=== PATIENT | female | born 1960 | race Caucasian/White ===

== ENCOUNTER 2021-09-29 09:17 | Emergency (ER) | payer OTHER ==
[2021-09-29 09:42] VITALS: BP 133/62; PULSE 73; TEMP 97.8; BMI 26.2
[2021-09-29] MEDS ORDERED: KETOROLAC TROMETHAMINE 15 MG/ML VIAL IM ONE (10:51)
[2021-09-29] MEDS ORDERED: ACETAMINOPHEN 325 MG TABLET (FP) PO ONE (10:51)
[2021-09-29] MEDS ORDERED: ACETAMINOPHEN 325 MG TABLET (FP) ONE (11:28)
[2021-09-29] MEDS ORDERED: CYCLOBENZAPRINE HCL 10 MG TABLET (FP) ONE (11:28)
[2021-09-29] MEDS ORDERED: KETOROLAC TROMETHAMINE 30 MG/1 ML VIAL ONE (11:29)
[2021-09-30] MEDS ORDERED: CYCLOBENZAPRINE HCL 5 MG TABLET PO ONE (10:52)
== END 2021-09-29 12:51 | disposition home or self-care (01) ==
LOC: JER 09:17
PROC: 3E023GC Introduction of Other Therapeutic Substance into Muscle, Percutaneous Approach (ICD-10-PCS; principal; 2021-09-29)
DX: M54.89 Other dorsalgia (principal); R91.1 Solitary pulmonary nodule
CPT/HCPCS: 71250-TC; 72125-TC; 72128-TC; 72131-TC; 99284-25

== ENCOUNTER 2022-02-22 07:49 | Inpatient (IN) | payer OTHER ==
[2022-02-22] MEDS ORDERED: SODIUM CHLORIDE 0.9% 500 ML INFUS.BAG IV ONE (09:02)
[2022-02-22] MEDS ORDERED: ACETAMINOPHEN 1000 MG/100 ML BAG IVPB ONE ×2 (09:02→22:50)
[2022-02-22] MEDS ORDERED: PANTOPRAZOLE SODIUM 40 MG VIAL IVPUSH ONE (09:04)
[2022-02-22] MEDS ORDERED: PANTOPRAZOLE SODIUM 40 MG VIAL ONE (09:47)
[2022-02-22] MEDS ORDERED: ACETAMINOPHEN INJECTION 100 ML IVPB ONE ×2 (09:47→09:48)
[2022-02-22 10:17] LABS: BASO % 0.3 % (0-2.0); EOS % 0.4 % (0-4.5); HEMATOCRIT 43.8 % (32.4-45.2); HEMOGLOBIN 14.8 GM/dL (10.7-15.3); MCH 30.8 pg (25.7-33.7); MCHC 33.7 g/dl (32.0-36.0); MEAN CELL VOLUME 91.4 fl (80-96); MEAN PLT VOLUME 6.5 fl (7.5-11.1); MONO % 4.4 % (3.8-10.2); NEUT % 77.9 % (42.8-82.8); PLATELET COUNT 282 10^3/uL (134-434); RBC 4.79 M/mm3 (3.60-5.2); RDW 13.5 % (11.6-15.6); WHITE BLOOD COUNT 9.7 K/mm3 (4.0-10.0)
[2022-02-22 10:18] LABS: URINE APPEARANCE CLEAR; URINE BILIRUBIN NEGATIVE (NEGATIVE); URINE COLOR YELLOW; URINE GLUCOSE (UA) NEGATIVE (NEGATIVE); URINE KETONE NEGATIVE (NEGATIVE); URINE LEUK ESTERASE NEGATIVE (NEGATIVE); URINE NITRITE NEGATIVE (NEGATIVE); URINE PROTEIN NEGATIVE (NEGATIVE); URINE UROBILINOGEN 0.2 mg/dL (0.2-1.0)
[2022-02-22 10:24] LABS: PROTHROMBIN TIME (PATIENT) 11.5 SEC (9.7-13.0)
[2022-02-22 10:35] LABS: CALCIUM 9.5 mg/dL (8.5-10.1)
[2022-02-22 10:36] LABS: ALBUMIN 3.9 g/dl (3.4-5.0); BLOOD UREA NITROGEN 12.4 mg/dL (7-18); MAGNESIUM 2.2 mg/dL (1.8-2.4)
[2022-02-22 10:38] LABS: CREATININE 0.6 mg/dL (0.55-1.3)
[2022-02-22 10:39] LABS: PHOSPHOROUS 3.3 mg/dL (2.5-4.9)
[2022-02-22 10:40] LABS: BILIRUBIN,TOTAL 0.7 mg/dL (0.2-1); TOT PROT 6.8 g/dl (6.4-8.2)
[2022-02-22] MEDS ORDERED: CEFTRIAXONE 1 GM in DEXTROSE 5%-WATER - 50 ML IVPB SCH (16:30)
[2022-02-22] MEDS: SODIUM CHLORIDE 1,000 ML IV SCH (17:40)
[2022-02-22] MEDS ORDERED: FAMOTIDINE 20 MG/50 ML IVPB 20 MG/50 ML MG IVPB ONE (22:50)
[2022-02-23 01:48] VITALS: BMI 27.8
[2022-02-23] MEDS: PANTOPRAZOLE SODIUM 40 MG VIAL IVPUSH SCH ×2 (06:10→21:28)
[2022-02-23 07:57] LABS: BASO % 0.6 % (0-2.0); EOS % 2.1 % (0-4.5); HEMATOCRIT 38.5 % (32.4-45.2); HEMOGLOBIN 13.1 GM/dL (10.7-15.3); LYMPH % 39.2 % (8-40); MCH 30.9 pg (25.7-33.7); MCHC 34.1 g/dl (32.0-36.0); MEAN CELL VOLUME 90.8 fl (80-96); MEAN PLT VOLUME 6.4 fl (7.5-11.1); MONO % 8.4 % (3.8-10.2); NEUT % 49.7 % (42.8-82.8); PLATELET COUNT 279 10^3/uL (134-434); RBC 4.24 M/mm3 (3.60-5.2); RDW 13.2 % (11.6-15.6)
[2022-02-23 08:36] LABS: CALCIUM 8.4 mg/dL (8.5-10.1)
[2022-02-23 08:37] LABS: ALBUMIN 3.3 g/dl (3.4-5.0); BLOOD UREA NITROGEN 7.7 mg/dL (7-18); MAGNESIUM 2.2 mg/dL (1.8-2.4)
[2022-02-23 08:40] LABS: CREATININE 0.5 mg/dL (0.55-1.3); PHOSPHOROUS 3.2 mg/dL (2.5-4.9)
[2022-02-23 08:41] LABS: TOT PROT 5.6 g/dl (6.4-8.2)
[2022-02-23] MEDS ORDERED: cefTRIAXone SODIUM 1 GM VIAL ONE (09:33)
[2022-02-23] MEDS ORDERED: DEXTROSE 5%-WATER - 50 ML IVPB ONE (09:33)
[2022-02-23] MEDS: CEFTRIAXONE 1 GM in DEXTROSE 5%-WATER - 50 ML IVPB SCH (09:35)
[2022-02-23] MEDS: SODIUM CHLORIDE 1,000 ML IV SCH ×3 (12:11→17:17)
[2022-02-24] MEDS ORDERED: ACETAMINOPHEN 1000 MG/100 ML BAG IVPB ONE (01:37)
[2022-02-24 07:36] LABS: BASO % 0.6 % (0-2.0); EOS % 1.5 % (0-4.5); HEMATOCRIT 38.1 % (32.4-45.2); HEMOGLOBIN 12.6 GM/dL (10.7-15.3); LYMPH % 30.6 % (8-40); MCH 30.3 pg (25.7-33.7); MEAN CELL VOLUME 91.8 fl (80-96); MEAN PLT VOLUME 6.8 fl (7.5-11.1); MONO % 7.6 % (3.8-10.2); NEUT % 59.7 % (42.8-82.8); PLATELET COUNT 271 10^3/uL (134-434); RBC 4.15 M/mm3 (3.60-5.2); RDW 13.3 % (11.6-15.6); WHITE BLOOD COUNT 6.9 K/mm3 (4.0-10.0)
[2022-02-24 07:48] LABS: CHLORIDE 108 mmol/L (98-107); SODIUM 141 mmol/L (136-145)
[2022-02-24 07:50] LABS: CALCIUM 8.6 mg/dL (8.5-10.1)
[2022-02-24 07:51] LABS: ALBUMIN 3.2 g/dl (3.4-5.0); ANION GAP 8 MMOL/L (8-16); BLOOD UREA NITROGEN 8.1 mg/dL (7-18); CO2 24 mmol/L (21-32); GLUCOSE,RANDOM 106 mg/dL (74-106); MAGNESIUM 2.2 mg/dL (1.8-2.4)
[2022-02-24 07:54] LABS: CREATININE 0.6 mg/dL (0.55-1.3); PHOSPHOROUS 2.7 mg/dL (2.5-4.9); SGOT/AST 10 U/L (15-37); SGPT/ALT 16 U/L (13-61)
[2022-02-24 07:56] LABS: TOT PROT 5.6 g/dl (6.4-8.2)
[2022-02-24 07:57] LABS: ALK PHOS 53 U/L (45-117)
[2022-02-24 07:59] LABS: BILIRUBIN,TOTAL 0.9 mg/dL (0.2-1)
[2022-02-24] MEDS: SODIUM CHLORIDE 1,000 ML IV SCH (09:03)
[2022-02-24] MEDS ORDERED: cefTRIAXone SODIUM 1 GM VIAL ONE (09:59)
[2022-02-24] MEDS ORDERED: DEXTROSE 5%-WATER - 50 ML IVPB ONE (09:59)
[2022-02-24] MEDS ORDERED: PANTOPRAZOLE 40 MG TABLET PO SCH (10:00)
[2022-02-24] MEDS: CEFTRIAXONE 1 GM in DEXTROSE 5%-WATER - 50 ML IVPB SCH (10:19)
[2022-02-24 14:03] VITALS: BP 107/64; PULSE 56; TEMP 98.3
== END 2022-02-24 19:04 | disposition home or self-care (01) | DRG 249 ==
LOC: JER 07:49 → JERBED 13:22 → J6S 22:38
PROVIDERS: ADMIT Internal Medicine; ATTEND Internal Medicine
DX: K52.9 Noninfective gastroenteritis and colitis, unspecified (principal); K21.9 Gastro-esophageal reflux disease without esophagitis; J45.909 Unspecified asthma, uncomplicated; R91.1 Solitary pulmonary nodule; Z87.11 Personal history of peptic ulcer disease; Z85.42 Personal history of malignant neoplasm of other parts of uterus
CPT/HCPCS: 36415; 71045-TC-FY; 74177-TC; 80053; 81003; 82272; 83605; 83690; 83735; 84100; 84443; 85025; 85302; 85303; 85610; 85730; 86140; 86850; 86900; 86901; 87040; 87086; 93005; 93010; 99285-25; C9803-CS; Q9967; U0003; U0005

== ENCOUNTER 2022-04-07 14:55 | Emergency (ER) | payer OTHER ==
[2022-04-07 15:44] VITALS: BP 105/68; PULSE 67; TEMP 98.3; BMI 27.4
[2022-04-07] MEDS ORDERED: ACETAMINOPHEN 500 MG TABLET (FP) PO ONE (17:35)
[2022-04-07] MEDS ORDERED: PHENAZOPYRIDINE HCL 100 MG TABLET (FP) PO ONE (17:35)
[2022-04-07] MEDS ORDERED: PHENAZOPYRIDINE HCL 100 MG TABLET (FP) ONE (17:42)
[2022-04-07] MEDS ORDERED: ACETAMINOPHEN 500 MG TABLET (FP) ONE (17:42)
[2022-04-07 18:03] LABS: EPI CELLS 12 /uL (0-25.1); HYALINE CASTS 0 /uL (0-3.1); PH,URINE 6.5 (5.0-8.0); URINE APPEARANCE CLEAR; URINE BACTERIA 73 /uL (0-1359); URINE BILIRUBIN NEGATIVE (NEGATIVE); URINE COLOR YELLOW; URINE GLUCOSE (UA) NEGATIVE (NEGATIVE); URINE KETONE NEGATIVE (NEGATIVE); URINE LEUK ESTERASE 2+ (NEGATIVE); URINE NITRITE NEGATIVE (NEGATIVE); URINE PROTEIN NEGATIVE (NEGATIVE); URINE RBC 7 /uL (0-23.9); URINE UROBILINOGEN 0.2 mg/dL (0.2-1.0); URINE WBC 223 /uL (0-25.8)
== END 2022-04-07 18:40 | disposition home or self-care (01) ==
LOC: JERFT 14:55
DX: N30.01 Acute cystitis with hematuria (principal)
CPT/HCPCS: 81003; 87086; 87186; 99283-25

== ENCOUNTER 2022-07-13 04:14 | Day surgery (SDC) | payer OTHER ==
[2022-07-10 10:55] VITALS: BMI 28.1
[2022-07-13 12:56] VITALS: BP 109/53; PULSE 57; RESP 16; TEMP 97.3
== END 2022-07-13 13:00 | disposition home or self-care (01) ==
LOC: JASU-ENDO 04:14
PROVIDERS: ATTEND Internal Medicine Gastroenterology
PROC: 0DBN8ZX Excision of Sigmoid Colon, Via Natural or Artificial Opening Endoscopic, Diagnostic (ICD-10-PCS; 2022-07-13)
PROC: 0DBM8ZX Excision of Descending Colon, Via Natural or Artificial Opening Endoscopic, Diagnostic (ICD-10-PCS; principal; 2022-07-13 10:30)
DX: D12.4 Benign neoplasm of descending colon (principal); D12.5 Benign neoplasm of sigmoid colon; K63.89 Other specified diseases of intestine; K64.8 Other hemorrhoids
CPT/HCPCS: 88305-TC

== ENCOUNTER 2022-10-22 20:33 | Emergency (ER) | payer OTHER ==
[2022-10-22 20:39] VITALS: BP 115/70; PULSE 63; RESP 17; TEMP 98.1; BMI 27.4
[2022-10-22] MEDS ORDERED: SODIUM CHLORIDE 0.9% 500 ML INFUS.BAG IV ONE (22:53)
[2022-10-22] MEDS ORDERED: morphine CARPU-JECT 2 MG/1 ML DISP.SYRIN IVPUSH ONE (23:37)
[2022-10-22 23:50] LABS: BASO % 0.6 % (0-2.0); EOS % 3.6 % (0-4.5); HEMATOCRIT 41.9 % (32.4-45.2); HEMOGLOBIN 13.9 GM/dL (10.7-15.3); LYMPH % 40.2 % (8-40); MCHC 33.2 g/dl (32.0-36.0); MEAN CELL VOLUME 90.4 fl (80-96); MEAN PLT VOLUME 6.5 fl (7.5-11.1); MONO % 7.3 % (3.8-10.2); NEUT % 48.3 % (42.8-82.8); PLATELET COUNT 279 10^3/uL (134-434); RBC 4.64 M/mm3 (3.60-5.2); RDW 13.7 % (11.6-15.6); WHITE BLOOD COUNT 6.8 K/mm3 (4.0-10.0)
[2022-10-22] MEDS ORDERED: morphine SULFATE 4 MG/ML VIAL ONE (23:51)
[2022-10-23 00:08] LABS: ALBUMIN 3.6 g/dl (3.4-5.0); BLOOD UREA NITROGEN 15.7 mg/dL (7-18)
[2022-10-23 00:11] LABS: CREATININE 0.6 mg/dL (0.55-1.3)
[2022-10-23 00:12] LABS: BILIRUBIN,TOTAL 0.3 mg/dL (0.2-1); TOT PROT 6.1 g/dl (6.4-8.2)
[2022-10-23 00:50] LABS: EPI CELLS 27 /uL (0-25.1); HYALINE CASTS 1 /uL (0-3.1); PH,URINE 5.5 (5.0-8.0); URINE APPEARANCE CLEAR; URINE BACTERIA 763 /uL (0-1359); URINE BILIRUBIN NEGATIVE (NEGATIVE); URINE COLOR YELLOW; URINE GLUCOSE (UA) NEGATIVE (NEGATIVE); URINE KETONE NEGATIVE (NEGATIVE); URINE LEUK ESTERASE 1+ (NEGATIVE); URINE NITRITE NEGATIVE (NEGATIVE); URINE PROTEIN NEGATIVE (NEGATIVE); URINE RBC 11 /uL (0-23.9); URINE UROBILINOGEN 0.2 mg/dL (0.2-1.0); URINE WBC 62 /uL (0-25.8)
== END 2022-10-23 03:21 | disposition home or self-care (01) ==
LOC: JER 20:33
PROC: 3E03329 Introduction of Other Anti-infective into Peripheral Vein, Percutaneous Approach (ICD-10-PCS; principal; 2022-10-22)
PROC: 3E033NZ Introduction of Analgesics, Hypnotics, Sedatives into Peripheral Vein, Percutaneous Approach (ICD-10-PCS; 2022-10-22)
DX: N39.0 Urinary tract infection, site not specified (principal); K59.00 Constipation, unspecified
CPT/HCPCS: 36415; 74177-TC; 80053; 81003; 85025; 87086; 99285-25; Q9967

== ENCOUNTER 2023-10-22 15:22 | Emergency (ER) | payer OTHER ==
[2023-10-22 15:36] VITALS: BP 120/64; PULSE 66; RESP 18; TEMP 98.2; BMI 27.4
== END 2023-10-22 17:32 | disposition home or self-care (01) ==
LOC: JERFT 15:22 → JER 15:22 → JERFT 17:32
DX: M79.602 Pain in left arm (principal); Z48.02 Encounter for removal of sutures
CPT/HCPCS: 99283-25

== ENCOUNTER 2024-01-16 11:35 | Emergency (ER) | payer SELFPAY ==
[2024-01-16 12:01] VITALS: BP 104/64; PULSE 75; RESP 18; TEMP 98.5; BMI 26.6
[2024-01-16] MEDS ORDERED: LIDOCAINE 4% PATCH TP ONE (12:35)
[2024-01-16] MEDS ORDERED: KETOROLAC TROMETHAMINE 30 MG/1 ML VIAL ONE (12:35)
[2024-01-16] MEDS: KETOROLAC TROMETHAMINE 30 MG/1 ML VIAL IM ONE (12:58)
[2024-01-16] MEDS: LIDOCAINE 5% TOPICAL PATCH TP ONE (12:58)
[2024-01-16 13:06] LABS: EPI CELLS 10 /uL (0-25.1); HYALINE CASTS 0 /uL (0-3.1); PH,URINE 5.5 (5.0-8.0); URINE APPEARANCE CLEAR; URINE BACTERIA 179 /uL (0-1359); URINE BILIRUBIN NEGATIVE (NEGATIVE); URINE COLOR YELLOW; URINE GLUCOSE (UA) NEGATIVE (NEGATIVE); URINE KETONE NEGATIVE (NEGATIVE); URINE LEUK ESTERASE TRACE (NEGATIVE); URINE NITRITE NEGATIVE (NEGATIVE); URINE PROTEIN NEGATIVE (NEGATIVE); URINE RBC 11 /uL (0-23.9); URINE WBC 9 /uL (0-25.8)
[2024-01-16] MEDS ORDERED: LIDOCAINE PATCH REMOVAL MC ONE (22:00)
== END 2024-01-16 14:29 | disposition home or self-care (01) ==
LOC: JERFT 11:35 → JER 11:35
PROC: 3E0233Z Introduction of Anti-inflammatory into Muscle, Percutaneous Approach (ICD-10-PCS; principal; 2024-01-16)
DX: M54.50 Low back pain, unspecified (principal); M54.6 Pain in thoracic spine
CPT/HCPCS: 72070-TC-FY; 72100-TC-FY; 81003; 87086; 99284-25

== ENCOUNTER 2024-06-06 07:37 | Emergency (ER) | payer OTHER ==
[2024-06-06 07:46] VITALS: BMI 26.9
[2024-06-06] MEDS ORDERED: ALBUTEROL SO4 2.5/IPRATROPIUM 0.5 INH SOL 3 ML VIAL.NEB. NEB SCH (11:00)
[2024-06-06] MEDS ORDERED: ALBUTEROL SO4 2.5/IPRATROPIUM 0.5 INH SOL 3 ML VIAL.NEB. NEB ONE (11:05)
[2024-06-06] MEDS ORDERED: DEXAMETHASONE SOD PHOSPHATE 10 MG/1 ML VIAL ONE (11:05)
[2024-06-06] MEDS ORDERED: LIDOCAINE 4% PATCH TP ONE (11:06)
[2024-06-06] MEDS: DEXAMETHASONE SOD PHOSPHATE 10 MG/1 ML VIAL IVPUSH ONE (11:27)
[2024-06-06] MEDS: LIDOCAINE 4% PATCH TP ONE (11:27)
[2024-06-06] MEDS: ALBUTEROL SO4 2.5/IPRATROPIUM 0.5 INH SOL 3 ML VIAL.NEB. NEB ONE (11:27)
[2024-06-06 11:30] LABS: HEMATOCRIT 42.9 % (32.4-45.2); HEMOGLOBIN 14.3 GM/dL (10.7-15.3); MCHC 33.4 g/dl (32.0-36.0); MEAN CELL VOLUME 92.6 fl (80-96); MEAN PLT VOLUME 6.5 fl (7.5-11.1); PLATELET COUNT 303 10^3/uL (134-434); RBC 4.63 M/mm3 (3.60-5.2); RDW 13.6 % (11.6-15.6); WHITE BLOOD COUNT 8.3 K/mm3 (4.0-10.0)
[2024-06-06 12:18] LABS: POTASSIUM 4.3 mmol/L (3.5-5.1)
[2024-06-06 12:20] LABS: CALCIUM 9.3 mg/dL (8.5-10.1)
[2024-06-06 12:21] LABS: BLOOD UREA NITROGEN 13.9 mg/dL (7-18)
[2024-06-06 12:24] LABS: CREATININE 0.8 mg/dL (0.55-1.3)
[2024-06-06 12:26] LABS: BILIRUBIN,TOTAL 0.5 mg/dL (0.2-1); TOT PROT 7.2 g/dl (6.4-8.2)
[2024-06-06 13:26] VITALS: BP 104/56; PULSE 56; RESP 20; TEMP 98.3
[2024-06-06] MEDS ORDERED: LIDOCAINE PATCH REMOVAL MC SCH (22:00)
== END 2024-06-06 13:37 | disposition home or self-care (01) ==
LOC: JER 07:37
PROC: 3E033GC Introduction of Other Therapeutic Substance into Peripheral Vein, Percutaneous Approach (ICD-10-PCS; principal; 2024-06-06)
PROC: 3E0F7GC Introduction of Other Therapeutic Substance into Respiratory Tract, Via Natural or Artificial Opening (ICD-10-PCS; 2024-06-06)
DX: M54.9 Dorsalgia, unspecified (principal); G89.29 Other chronic pain; J45.909 Unspecified asthma, uncomplicated
CPT/HCPCS: 36415; 71045-TC-FY; 80053; 84484; 85027; 93005; 93010; 99285-25; J1100

== ENCOUNTER 2024-06-16 10:41 | Emergency (ER) | payer OTHER ==
[2024-06-16 10:48] VITALS: BP 120/74; PULSE 68; RESP 18; TEMP 97.6; BMI 27.4
== END 2024-06-16 11:34 | disposition home or self-care (01) ==
LOC: JERFT 10:41
DX: H00.11 Chalazion right upper eyelid (principal); H57.11 Ocular pain, right eye
CPT/HCPCS: 99283-25

== ENCOUNTER 2024-07-16 07:42 | Emergency (ER) | payer OTHER ==
[2024-07-16 08:02] VITALS: BMI 26.6
[2024-07-16] MEDS ORDERED: KETOROLAC TROMETHAMINE 15 MG/ML VIAL ONE (08:42)
[2024-07-16] MEDS: KETOROLAC TROMETHAMINE 15 MG/ML VIAL IVPUSH ONE (08:55)
[2024-07-16 09:02] LABS: BASO % 0.8 % (0-2.0); EOS % 1.7 % (0-4.5); HEMATOCRIT 41.6 % (32.4-45.2); HEMOGLOBIN 13.9 GM/dL (10.7-15.3); LYMPH % 29.5 % (8-40); MCH 30.4 pg (25.7-33.7); MCHC 33.5 g/dl (32.0-36.0); MEAN CELL VOLUME 90.9 fl (80-96); MEAN PLT VOLUME 6.7 fl (7.5-11.1); MONO % 8.2 % (3.8-10.2); NEUT % 59.8 % (42.8-82.8); PLATELET COUNT 290 10^3/uL (134-434); RBC 4.58 M/mm3 (3.60-5.2); RDW 13.8 % (11.6-15.6); WHITE BLOOD COUNT 5.8 K/mm3 (4.0-10.0)
[2024-07-16 09:08] LABS: PH,URINE 7.5 (5.0-8.0); URINE APPEARANCE CLEAR; URINE BILIRUBIN NEGATIVE (NEGATIVE); URINE COLOR YELLOW; URINE GLUCOSE (UA) NEGATIVE (NEGATIVE); URINE KETONE NEGATIVE (NEGATIVE); URINE LEUK ESTERASE NEGATIVE (NEGATIVE); URINE NITRITE NEGATIVE (NEGATIVE); URINE PROTEIN NEGATIVE (NEGATIVE); URINE UROBILINOGEN 0.2 mg/dL (0.2-1.0)
[2024-07-16 09:11] LABS: INR 0.93 (0.83-1.09); PROTHROMBIN TIME (PATIENT) 10.7 SEC (9.7-13.0)
[2024-07-16 09:14] LABS: ACTIVATED PTT 33.6 SECONDS (25.2-36.5)
[2024-07-16 09:19] LABS: ALBUMIN 3.9 g/dl (3.4-5.0); BLOOD UREA NITROGEN 12.3 mg/dL (7-18)
[2024-07-16 09:22] LABS: CALCIUM 8.9 mg/dL (8.5-10.1); CREATININE 0.8 mg/dL (0.55-1.3)
[2024-07-16 09:24] LABS: BILIRUBIN,TOTAL 0.5 mg/dL (0.2-1); TOT PROT 6.8 g/dl (6.4-8.2)
[2024-07-16] MEDS ORDERED: MAG HYDROX/AL HYDROX/SIMETH 30 ML UNIT-DOSE CUP ONE (10:19)
[2024-07-16] MEDS ORDERED: FAMOTIDINE 20 MG/50 ML IVPB 20 MG/50 ML MG IVPB ONE (10:20)
[2024-07-16] MEDS: MAG HYDROX/AL HYDROX/SIMETH 30 ML UNIT-DOSE CUP PO ONE (10:35)
[2024-07-16] MEDS: SODIUM CHLORIDE 1,000 ML IV STA (10:35)
[2024-07-16] MEDS: FAMOTIDINE 20 MG/50 ML IVPB 20 MG/50 ML MG IVPB ONE (10:36)
[2024-07-16 12:54] VITALS: BP 116/63; PULSE 64; RESP 18; TEMP 98.4
== END 2024-07-16 13:18 | disposition home or self-care (01) ==
LOC: JER 07:42
PROC: 3E033GC Introduction of Other Therapeutic Substance into Peripheral Vein, Percutaneous Approach (ICD-10-PCS; principal; 2024-07-16)
PROC: 3E0333Z Introduction of Anti-inflammatory into Peripheral Vein, Percutaneous Approach (ICD-10-PCS; 2024-07-16)
PROC: 3E0337Z Introduction of Electrolytic and Water Balance Substance into Peripheral Vein, Percutaneous Approach (ICD-10-PCS; 2024-07-16)
DX: M54.50 Low back pain, unspecified (principal); M54.6 Pain in thoracic spine; G89.29 Other chronic pain; R10.11 Right upper quadrant pain; R10.31 Right lower quadrant pain; R11.2 Nausea with vomiting, unspecified; R50.9 Fever, unspecified; R00.1 Bradycardia, unspecified
CPT/HCPCS: 36415; 72070-TC-FY; 72100-TC-FY; 74177-TC; 76700-TC; 80053; 81003; 85025; 85610; 85730; 86850; 86900; 86901; 87086; 99285-25

== ENCOUNTER 2024-08-04 09:45 | Emergency (ER) | payer OTHER ==
[2024-08-04 10:27] VITALS: BP 131/64; PULSE 72; RESP 19; TEMP 98.4; BMI 25.4
== END 2024-08-04 11:23 | disposition home or self-care (01) ==
LOC: JERFT 09:45
DX: J40 Bronchitis, not specified as acute or chronic (principal); R09.81 Nasal congestion; R05.3 Chronic cough; R06.02 Shortness of breath; R07.81 Pleurodynia; Z20.822 Contact with and (suspected) exposure to COVID-19
CPT/HCPCS: 0241U-QW; 71046-TC-FY; 99283-25